=== PATIENT | male | born 1930 | race Caucasian/White ===

== ENCOUNTER 2016-09-18 13:25 | Emergency (ER) | payer MEDICARE, OTHER | END 2016-09-18 14:12 | disposition home or self-care (01) | LOC: CFTX 13:25 → CED 13:25 → CFTX 14:12 | DX: L03.012 Cellulitis of left finger (principal); J44.9 Chronic obstructive pulmonary disease, unspecified; I10 Essential (primary) hypertension; K21.9 Gastro-esophageal reflux disease without esophagitis; F17.210 Nicotine dependence, cigarettes, uncomplicated; Z23 Encounter for immunization | CPT/HCPCS: 90471; 90715; 99283 ==